=== PATIENT | male | born 1985 | race Hispanic/Latino ===

== ENCOUNTER 2018-12-17 17:41 | Inpatient (IN) | payer SELFPAY ==
[~2018-12-17 17:41] MED LIST: Dexamethasone 20 MG/5 ML VIAL ONE; Heparin 10,000 UNITS/ 10 ML VIAL ONE; Lidocaine 1% PF 5 ML VIAL ONE; Ondansetron PF 4 MG/2 ML Vial ONE; PROPOFOL 200 MG/20 ML VIAL ONE; Rocuronium Bromide 10 MG/ML (10ML VIAL) ONE
[2018-12-17] MEDS ORDERED: Sodium Chloride 0.9% 50 ML ONE (18:01)
[2018-12-17] MEDS ORDERED: Heparin 10,000 UNITS/1 ML VIAL ONE ×2 (18:01→18:03)
[2018-12-17] MEDS ORDERED: Bacitracin Zinc Ointment 30 gm TUBE ONE (18:01)
[2018-12-17] MEDS ORDERED: Lidocaine 2% PF 5 ML VIAL ONE ×2 (18:01→18:03)
[2018-12-17] MEDS ORDERED: Hetastarch 6% 500 ML 500 ML ONE (18:01)
[2018-12-17] MEDS ORDERED: Betamet Acet/Betamet Na Ph 30 MG/5 ML VIAL ONE (18:14)
[2018-12-17] MEDS ORDERED: Bupivacaine PF 0.5% 30 ML VIAL ONE (18:14)
[2018-12-17] MEDS ORDERED: Milk Of Magnesia 30 ML UDCUP PO PRN (18:49)
[2018-12-17] MEDS ORDERED: Morphine 4 MG/ML VIAL SLOW IVP PRN (18:49)
[2018-12-17] MEDS ORDERED: Acetaminophen 325 MG TAB PO PRN (18:49)
[2018-12-17] MEDS ORDERED: Ondansetron PF 4 MG/2 ML Vial IV PRN (18:49)
[2018-12-17] MEDS ORDERED: Promethazine HCl 25 MG/ML VIAL IM PRN (18:49)
[2018-12-17] MEDS ORDERED: traMADol HCl 50 MG TAB PO PRN (18:49)
[2018-12-17] MEDS ORDERED: HYDROcodone/Acetaminophen 5/325 mg Tablet PO PRN (18:49)
[2018-12-17] MEDS ORDERED: Fentanyl 100 MCG/2 ML VIAL SLOW IVP PRN (18:49)
[2018-12-17] MEDS ORDERED: Meperidine HCl/PF 25 MG/ML VIAL IM PRN (18:57)
[2018-12-17] MEDS ORDERED: Communication Order-Pharmacy FS SCH (19:00)
[2018-12-17] MEDS ORDERED: Hetastarch 6% 500 ML 500 ML IVPB SCH (19:15)
[2018-12-17] MEDS ORDERED: Fentanyl 100 MCG/2 ML VIAL ONE (19:31)
[2018-12-17] MEDS ORDERED: Aspirin 81 mg Enteric Coated Tablet PO SCH (21:00)
[2018-12-17] MEDS ORDERED: Vancomycin HCl 1 GM in Premix Bag 1 BAG IVPB SCH (21:00)
[2018-12-17] MEDS ORDERED: HYDROmorphone 2 MG/ML VIAL ONE (22:10)
[2018-12-17] MEDS ORDERED: Heparin 25,000 units/D5W 500 ML IV SCH (23:15)
[2018-12-18] MEDS ORDERED: Acetaminophen 325 MG TAB PO PRN (03:00)
[2018-12-18] MEDS ORDERED: Ondansetron PF 4 MG/2 ML Vial IV PRN (03:01)
[2018-12-18] MEDS ORDERED: Promethazine HCl 25 MG/ML VIAL IM PRN (03:01)
[2018-12-18] MEDS ORDERED: Milk Of Magnesia 30 ML UDCUP PO PRN (03:01)
[2018-12-18] MEDS ORDERED: Fentanyl 100 MCG/2 ML VIAL SLOW IVP PRN (03:01)
[2018-12-18] MEDS ORDERED: traMADol HCl 50 MG TAB PO PRN (03:03)
[2018-12-18] MEDS ORDERED: Meperidine HCl/PF 25 MG/ML VIAL IM PRN (03:03)
[2018-12-18] MEDS ORDERED: Communication Order-Pharmacy FS SCH (03:15)
[2018-12-18 04:37] VITALS: BMI 30.6
--- NOTE | 2018-12-18 07:57 | RAD ---
XR Hand Rt 2 View History: Amputation Comparison: None. Findings: Appears be tendon suture anchor at the volar aspect of the index finger middle phalanx base . Concomitant fracture of the volar plate middle phalanx base. Impression: Fluoroscopy for surgical use. Total fluoroscopy time: 26.9 seconds
[2018-12-18] MEDS: Aspirin 81 mg Enteric Coated Tablet PO SCH ×2 (08:24→19:12)
[2018-12-18] MEDS: Vancomycin HCl 1 GM in Premix Bag 1 BAG IVPB SCH ×3 (08:25→23:13)
--- NOTE | 2018-12-18 08:30 | RAD ---
3 VIEWS RIGHT HAND: Date: 12/18/18 COMPARISON: 12/17/18. HISTORY: Postop right hand partial amputation. FINDINGS: 3 views of the right hand show two bone anchors in the middle phalanx of the index finger. An overlyi ng splint obscures fine bony and soft tissue detail. IMPRESSION: Postoperative changes of the index finger. POS: Sloan
[2018-12-18] MEDS ORDERED: TETANUS AND DIPHTHERIA TOX/PF 0.5 ML DISP.SYRIN IM SCH ×2 (09:00)
--- NOTE | 2018-12-18 09:46 | CON ---
DATE OF CONSULTATION: HISTORY OF PRESENT ILLNESS: Ben Elam is a 33-year-old morbidly obese gentleman, speaks little Greenlandic, came to the ER last night after injuring his right hand. He apparently was transferred from [facility] with partial amputation of his right 2nd and 3rd fingers after table saw injury. He received tetanus, Ancef, and fentanyl, and taken to surgery by Dr. Hastings. Please review history. The patient says he does not smoke, does not take any drugs. PAST MEDICAL HISTORY: Maybe hyperlipidemia. PAST SURGICAL HISTORY: None. CHRONIC MEDICATIONS: None. ALLERGIES: NONE. SOCIAL HISTORY: Construction. FAMILY HISTORY: Unremarkable. REVIEW OF SYSTEMS: Ten-point negative. PHYSICAL EXAMINATION: VITAL SIGNS: Sats are 95% on room air, pulse 108, respiratory rate 20, and blood pressure 150/86. CHEST: No wheezing or crackles. CARDIAC: Normal S1 and S2. No gallops. ABDOMEN: No masses. NEUROLOGIC: He is awake, alert, and responsive. IMPRESSION: Status post surgery for injury to the right hand. Please review the surgeon's report. Things that were performed apparently included right thumb wound debridement, right index finger debridement, open dislocation, micro digital nerve repair. PLAN: Lab is being ordered, baseline. ICU care as per hand surgeon. He is on broad-spectrum antibiotics. Pain relief. He is on heparin drip because of his vascular surgery. Pulmonary Critical Care will follow while in the ICU. Consultation note, 70 minutes, 50% direct patient care. Job ID: [id number]
[2018-12-18 09:59] LABS: #Lymphocytes 1.7 thou/uL (1.20-3.40); #Monocytes 1.2 thou/uL (0.11-0.59); #Neutrophils 12.9 thou/uL (1.40-6.50); %Basophils 0.2 % (0.0-1.0); %Eosinophils 0.1 % (0.0-10.0); %Lymphocytes 10.8 % (21.0-51.0); %Monocytes 7.4 % (0.0-10.0); %Neutrophils 81.6 % (42.0-75.0); Hemoglobin 13.6 g/dL (14.0-18.0); Mean Corpuscular HGB CONC 35.7 g/dL (32.0-36.0); Mean Corpuscular Hemoglobin 31.1 pg (27.0-31.0); Mean Corpuscular Volume 87.3 fL (78.0-98.0); Mean Platelet Volume 7.1 fL (7.4-10.4); Platelet Count 185 thou/uL (130-400); RBC Distribution Width 11.4 % (11.5-14.5); Red Blood Cell (RBC) Count 4.37 mill/uL (4.70-6.10); White Blood Cell (WBC) Count 15.8 thou/uL (4.8-10.8)
[2018-12-18 10:23] LABS: ALT (SGPT) 25 U/L (8-55); AST (SGOT) 19 U/L (5-34); Albumin 4.1 g/dL (3.5-5.0); Alkaline Phosphatase 59 U/L (40-150); Anion Gap 11 mmol/L (10-20); BUN (Urea Nitrogen) 11 mg/dL (8.9-20.6); Bilirubin, Total 0.6 mg/dL (0.2-1.2); Calc. Creatinine Clearance 209 mL/min (70-130); Calcium 8.8 mg/dL (7.8-10.44); Carbon Dioxide 24 mmol/L (22-29); Chloride 101 mmol/L (98-107); Estimated GFR-MDRD Greater than 90; Globulin 2.8 g/dL (2.4-3.5); Glucose 200 mg/dL (70-105); Potassium 3.4 mmol/L (3.5-5.1); Protein, Total 6.9 g/dL (6.0-8.3); Sodium 133 mmol/L (136-145)
[2018-12-18] MEDS: HYDROcodone/Acetaminophen 5/325 mg Tablet PO PRN ×4 (11:33→23:13)
[2018-12-18] MEDS: Hetastarch 6% 500 ML 500 ML IVPB SCH (14:43)
[2018-12-18] MEDS: Morphine 4 MG/ML VIAL SLOW IVP PRN (19:13)
[2018-12-19] MEDS: HYDROcodone/Acetaminophen 5/325 mg Tablet PO PRN ×4 (03:30→20:53)
[2018-12-19] MEDS: Vancomycin HCl 1 GM in Premix Bag 1 BAG IVPB SCH ×3 (07:29→23:54)
--- NOTE | 2018-12-19 08:52 | PRG ---
DATE OF SERVICE: 12/19/2018 SUBJECTIVE: A 33-year-old gentleman status post amputation of his right hand multiple fingers, doing better, apparently bradycardic last night. OBJECTIVE: VITAL SIGNS: This morning, his saturations are 100% on room air, pulse 75, blood pressure 132/87, and respiratory rate 18. No shortness of breath. CHEST: No wheezing or crackles. CARDIAC: Normal S1 and S2. No gallops. ABDOMEN: No masses. LABORATORY DATA: His blood sugar is slightly elevated 200. Thyroid function normal. Labs unremarkable. Sodium was 133 and potassium 3.4. IMPRESSION: Traumatic amputation right fingers, diabetes, and obesity. PLAN: He can be transferred out of the ICU as per Surgery. Pulmonary/Critical Care will follow only in the ICU. Job ID: [id number]
[2018-12-19] MEDS: Aspirin 81 mg Enteric Coated Tablet PO SCH ×2 (09:27→20:54)
[2018-12-19] MEDS: Hetastarch 6% 500 ML 500 ML IVPB SCH (09:29)
--- NOTE | 2018-12-19 10:03 | OP ---
DATE OF PROCEDURE: 12/18/2018 ANESTHESIA: General endotracheal anesthesia. TOURNIQUET TIME: Total of 134 minutes. ESTIMATED BLOOD LOSS: 100 mL. COMPLICATIONS: None. INDICATIONS FOR SURGERY: The patient had a table saw contact of the thumb palmar space, distal phalanx, the interphalangeal joint area of the long finger palmar and the distal phalangeal joint palmar area of the long finger and the proximal phalangeal joint palmar area of the index finger leaving him with neurovascular damage, open fractures, open dislocations. PREOPERATIVE DIAGNOSES: 1. Right thumb laceration deep, total of 3 cm right thumb palmar space. 2. Right index finger: a. Open proximal phalangeal joint dislocation. b. Open proximal phalanx fracture. c. Volar plate laceration. d. Flexor digitorum superficialis complete laceration zone 2. e. Flexor digitorum profundus laceration, zone 2. f. Digital nerve radial laceration. g. Digital nerve ulnar laceration. h. Complete laceration of both radial and ulnar digit artery leaving the patient with vascular compromise flow digit. i. 5 cm wound with mild to moderate contamination from gross particle matter but no manure or animal parts. 3. Right long finger;. a. 5 cm deep wound with open fracture of the middle phalanx, distal neck. b. Open fracture of the distal phalanx, right long finger. c. Volar plate laceration, distal interphalangeal joint. d. Zone 2 laceration of the flexor digitorum profundus, complete. e. Digital nerve laceration of the long finger, primarily on the radial side with neurovascular bundle on the ulnar side intact. PROCEDURES PERFORMED: 1. Right thumb;. a. Wound debridement, intermediate depth [id number]. b. Closure wound 3 cm right thumb. 2. Right index finger;. a. Debridement of material associated open fracture. b. Debridement of wound, separate layers. Although, there was debridement of the material associated open fracture dislocation and joint, the incision was quite long, so it involved a wound debridement separate from the joint debridement site. c. Open reduction and repair, proximal phalangeal joint dislocation. d. Volar plate reconstruction, right long finger proximal phalangeal joint. e. Open treatment, base of middle phalanx avulsion fracture with fixation using anchor. f. Flexor digitorum superficialis repair zone 2, complete. g. Flexor digitorum profundus repair zone 2, using side limb technique loop suture. h. Microscopic digital nerve repair, ulnar digital nerve. i. Microscopic digital nerve repair, radial digital nerve. j. Microscopic digital artery repair, radial digital artery, right index finger. k. Wound closure, 5 cm right index finger. 3. Right long finger;. a. Wound debridement. b. Debridement of material associated open fracture of the middle phalanx. c. Debridement of material associated open fracture, distal phalanx. These were two separate sites requiring wound extension separate from each other. d. Closure of wound 5 cm. e. Open treatment fracture, middle phalanx. f. Open treatment fracture, distal phalanx. g. Flexor digitorum profundus repair, zone 1. h. Volar plate repair. i. Microscopic digital nerve repair of radial digital nerve. j. C-arm supervision. INDICATION: Contamination of wound with injuries as listed above. DESCRIPTION OF PROCEDURE: After successful counseling with the patient using both Tamazight and [place]ican dropper tank storage, to include obtaining consent from his nephew who was there with him and works with him at the site. The patient was brought to the operating with the knowledge that he had lost circulation of at least one digit and might have a chance of losing the digit. Once this understood both [place]ican and Tamazight, went to the operating room and the patient underwent trauma type initiation of care to include a Davis catheter for extended procedure, extra padding, all limbs and pressure points, appropriate head and shoulder precautions, and placed on the arm table with axilla in the center. We then prepped and draped the patient with a well-padded unsterile tourniquet using the entire 6-inch Webril for padding, did a time-out, prepped and draped the limb, exsanguinated the limb, inflated tourniquet to 250 mmHg pressure. First thing we did was explored the wounds. First, we extended the incision of the thumb and found it was just through the dermis. No evidence of neurovascular compromise. We debrided this wound using the same technique we would for the other wounds which is 1. Use of curette, tenotomy scissors, Concho blade, 11 blade knife, and the irrigation. 2. Excision technique. 3. Down to include the greatest depth found from the penetrating injury. 4. We found minimal particulate contamination. Once we had done this to thumb, we then extended the very jagged transverse laceration at the index finger which was centered over the proximal phalangeal joint after radiographs preop showed an open dislocation. We then found that there was not only open dislocation, but approximately 15% articular surface was comminuted at base of the proximal phalanx, and the laceration had gone through the volar plate at the proximal phalangeal joint completely it from the base of the middle phalanx, and he had FDP and FDS laceration and retracted slightly. Removed particulate matter doing the debridement technique listed above. We then irrigated with 4 L normal saline and Pulsavac pressure. At this point, we debrided the edges of the tendon in preparation for closure. We then attacked the long finger, extended this incision using Desiree techniques. There was quite amount of jagged skin, and then performed the same debridement after discovering that here also was a fracture of both the distal middle phalanx, the base of the distal phalanx, and the volar plate laceration. At the index finger, there was no circulation whatsoever, but there was circulation return with dissection showing that the ulnar neurovascular bundle on the long finger was intact, but the radial neurovascular bundle at both fingers and all neurovascular bundle at the index were destroyed by the injury. We irrigated with 3 L normal saline at the index finger. There was no more particulate matter we bluntly dissected out the neurovascular structures on each site. We then turned attention to the bone and soft tissue. The joint was clearly unstable at the index finger. After we had done the debridement of the fracture and the material associated with open fracture and wound, we reduced it. We then saw there was some fragmented pieces of the base of the proximal middle phalanx that would not hold a screw or wire, so we used two anchors, sutured the bone with the volar plate, reduced the joint, and reconstructed the volar plate at the same time taken for the open treatment with internal fixation of the fracture. We did not pin the joint because it was stable once this was done, and we needed to have a motion for our neurovascular and flexor tendon repair. We then addressed the flexor digitorum superficialis tendon using a 4-0 Prolene on a small C1 needle, performed a modified Gardner technique because we had approximately 5 mm of tendon still available distal to the laceration for the FDS repair. A small amount of 6-0 was then used for the peritendinous repair. We then retracted the FDP into the field, and using a Guillermo needle faye in place, we were able to repair the tendon using the Gorman/Darlyn technique with a 4-0 loop suture. We had a running back wall 6-0 suture applied 1st, did the side limb technique with excellent overlap and tension, and then did the volar or visual wall repair with a running same 6-0 Prolene. At this point, neurovascular bundles were visualized, and we realized we had to do arterial repair and both digital nerves needed to be repaired as well. We turned our attention to the bone and tendinous injuries at the long finger. Here, we also had a volar plate laceration distal interphalangeal joint, we performed open treatment of fracture as described above and that involved mostly debridement for the middle phalanx distal neck, but the proximal base of the distal phalanx, we had to again use a combination of repair and a heavy Prolene suture as well as 4-0 Prolene and this included the fracture fragments as well as volar plate. Now, this joint was stable. We had 1 cm of tendon distal to the laceration, protected the intact neurovascular bundle and then performed Gorman/Darlyn technique with the 4-0 loop suture. Again, a 6-0 Prolene was used for back wall and volar visible wall for epitendinous repair as well. Both tendons had excellent gliding. At this point, we had passed 2-hour tourniquet and for most of the work done on the long finger, the tourniquet was down and remained down for the rest of the case. We now turned attention back to the index finger knowing that we did not have circulation. We first brought the microscope in the field, used microvascular instruments, dissected out the nerve and neurovascular bundle and placing a background of blue edge of the Esmarch underneath to an appropriate size. We then repaired under microscope with 9-0 suture, the digital nerve, radial side. We then used a combination of 10-0 and 9-0 sutures using a dual vessel clamp to repair first with the back wall, first technique. The digital artery, after preparing the artery well, using the Darlyn solution to make sure the vessels had pulsating flow without evidence. Once we had made this repair, since the tourniquet was out, immediately the finger went from pale white to pink and appropriately 1-1.5 seconds refill and we had some back wall bleeding from the radial side and the ulnar side veins. We then used the microscope to repair the digital nerve on the radial side, contralateral side of the same digit without complication with 9-0 suture. We now turned attention to the neurovascular bundles on the long finger. Here, we did our dissection under loupe magnification and brought the microscope back to the field. We identified this injury being more distal, so we had to repair the trifurcation. On the radial side, one limb of the trifurcation was intact, so only had to repair 2 as it went into the skin of complex laceration. This was done with 9-0 Nurolon and 10-0 Nurolon in combination. The same thing was done on the contralateral side as well where 2 of the trifurcations needed to be repaired and one side already went into the skin, distal to the laceration was not involved. The neurovascular bundle remained intact and the digit was pink. We then irrigated slightly with bulb syringe of all wounds. We closed the skin using complex technique at the thumb with 4-0 nylon. We used 4-0 nylon in a simple interrupted technique after debriding the skin edges with tenotomy scissors both the index and long finger and once we had closed it, there was no gap with extension. We had appropriate flexion of the DIP and PIP joints more than other digits because of the repairs and digits remained pink. We then placed bacitracin and Adaptic over all the digits, we had excellent flow, placed in a bulky dressing and then a dorsal block splint with the PIP joint at -20 degrees of flexion. The patient left the operating room with pink index, long, ring, and small fingers and thumb and no evidence of anesthetic or operative complication. We applied a long-arm splint. The patient had left the operating room without evidence of anesthetic or operative complication. Job ID: [id number]
[2018-12-19 11:08] LABS: Vancomycin, Trough 13.6 ug/mL
[2018-12-19] MEDS: Morphine 4 MG/ML VIAL SLOW IVP PRN ×2 (11:22→18:42)
[2018-12-20] MEDS: HYDROcodone/Acetaminophen 5/325 mg Tablet PO PRN ×4 (05:46→20:47)
[2018-12-20] MEDS: Aspirin 81 mg Enteric Coated Tablet PO SCH ×2 (08:18→20:48)
[2018-12-20] MEDS: Hetastarch 6% 500 ML 500 ML IVPB SCH (10:01)
[2018-12-20 21:47] VITALS: BP 150/89; TEMP 98.4
== END 2018-12-20 21:50 | disposition home or self-care (01) | DRG 906 ==
LOC: ERS 17:41 → SDC/OP 19:32 → CCU 19:32 → ERS 19:32 → CCU 12-18 01:02 → SURG A 12-19 10:47
PROVIDERS: ADMIT Orthopaedic Surgery Hand Surgery; ATTEND Orthopaedic Surgery Hand Surgery
PROC: 0PST04Z Reposition Right Finger Phalanx with Internal Fixation Device, Open Approach (ICD-10-PCS; principal; 2018-12-18)
PROC: 0XQLXZZ Repair Right Thumb, External Approach (ICD-10-PCS; 2018-12-18)
PROC: 01Q60ZZ Repair Radial Nerve, Open Approach (ICD-10-PCS; 2018-12-18)
PROC: 01Q40ZZ Repair Ulnar Nerve, Open Approach (ICD-10-PCS; 2018-12-18)
PROC: 03QB0ZZ Repair Right Radial Artery, Open Approach (ICD-10-PCS; 2018-12-18)
PROC: 0RBW0ZZ Excision of Right Finger Phalangeal Joint, Open Approach (ICD-10-PCS; 2018-12-18)
PROC: 0XQQ0ZZ Repair Right Middle Finger, Open Approach (ICD-10-PCS; 2018-12-18)
PROC: 0HBFXZZ Excision of Right Hand Skin, External Approach (ICD-10-PCS; 2018-12-18)
DX: S68.120A Partial traumatic metacarpophalangeal amputation of right index finger, initial encounter (principal); S68.122A Partial traumatic metacarpophalangeal amputation of right middle finger, initial encounter; E78.5 Hyperlipidemia, unspecified; S61.011A Laceration without foreign body of right thumb without damage to nail, initial encounter; S64.21XA Injury of radial nerve at wrist and hand level of right arm, initial encounter; S64.01XA Injury of ulnar nerve at wrist and hand level of right arm, initial encounter; S64.492A Injury of digital nerve of right middle finger, initial encounter; E11.9 Type 2 diabetes mellitus without complications; W27.0XXA Contact with workbench tool, initial encounter; E66.01 Morbid (severe) obesity due to excess calories; Z68.30 Body mass index [BMI] 30.0-30.9, adult
CPT/HCPCS: 36415; 80053; 80202; 84443; 85025; 99285; C1713; G0390; J0702; J1100; J1170; J1644; J2001; J2270; J2405; J2704; J3010; J3370; J3490; S0020